=== PATIENT | male | born 1960 | race Caucasian/White ===

== ENCOUNTER 2017-03-01 05:41 | Day surgery (SDC) | payer OTHER ==
[2017-03-01] MEDS ORDERED: LR 1,000 ML IV ONE (06:28)
[2017-03-01] MEDS ORDERED: ceFAZolin 2 GM/DEXTROSE 100 ML IV ONE (07:00)
[2017-03-01] MEDS ORDERED: THROMBIN (BOVINE) 5,000 UNIT VIAL TP ONE (07:00)
[2017-03-01] MEDS ORDERED: CHLORHEXIDINE GLUC HIBICLENS 118 ML BTL TP ONE (07:00)
[2017-03-01] MEDS ORDERED: BACITRACIN 50,000 UNITS/10 ML SYR IRR ONE (07:01)
[2017-03-01] MEDS ORDERED: BUPIVACAINE/EPI 0.25% 30 ML SDV ONE (07:01)
[2017-03-01] MEDS ORDERED: MIDAZOLAM 2 MG/2 ML VIAL ONE (07:11)
[2017-03-01] MEDS ORDERED: fentaNYL 100 MCG/2 ML INJ ONE ×2 (07:20→10:41)
[2017-03-01] MEDS ORDERED: PROPOFOL/EMULSION 500 MG/50 ML BOTTLE IV ONE ×2 (07:21→08:42)
[2017-03-01] MEDS ORDERED: REMIFENTANIL HCL 1 MG VIAL ONE ×2 (07:21→08:41)
[2017-03-01] MEDS ORDERED: PROPOFOL 200 MG/20 ML VIAL ONE (07:21)
[2017-03-01] MEDS ORDERED: ONDANSETRON 4 MG/2 ML VIAL ONE (07:22)
[2017-03-01] MEDS ORDERED: ROCURONIUM 50 MG/5 ML VIAL ONE (07:23)
[2017-03-01] MEDS ORDERED: DEXAMETHASONE 4 MG/ML VIAL ONE ×3 (07:23→07:50)
[2017-03-01] MEDS ORDERED: LIDOCAINE 2% 5 ML SDV ONE (07:23)
[2017-03-01] MEDS ORDERED: BUPIVACAINE 0.5% 30 ML SDV ONE (07:49)
[2017-03-01] MEDS ORDERED: epHEDrine SULFATE 10 MG/ML SYR ONE ×2 (08:06→08:55)
[2017-03-01] MEDS ORDERED: fentaNYL 250 MCG/5 ML INJ ONE (09:40)
[2017-03-01] MEDS ORDERED: LABETALOL HCL 50 MG/10 ML SYR ONE (10:07)
--- NOTE | 2017-03-01 11:04 | GOP ---
[f rep st] OPERATIVE REPORT DATE OF OPERATION: 03/01/2017 SURGEON: Jose R Tony MD [facility]PASS OPERATOR: Kvng Wakefield PA-C. PREOPERATIVE DIAGNOSIS: Cervical spondylosis with cervicalgia and left cervical radiculopathy. POSTOPERATIVE DIAGNOSIS: Cervical spondylosis with cervicalgia and left cervical radiculopathy. PROCEDURE PERFORMED: Anterior cervical diskectomy and fusion with a plate at C5-6, and placement of biomechanical graft at C5-6 with the same incision bone graft harvest ([id number], [id number], [id number], [id number], [id number]). FINDINGS: ESTIMATED BLOOD LOSS: 25 cc. INDICATIONS: The patient is a 56-year-old with terrible pain radiating down the left arm. Unrespon sive to conservative measures and his MRI demonstrated spondylosis C5-6. There were minimal changes at C6-7 and even C7-T1, and I suggested a single-level fusion at C5-6. We discussed disc arthropla sty and a posterior foraminotomy. He did have a degree of posterior ligamentous hypertrophy at C5-6 but I thought an ACDF would give him the best relief. The risk of pseudoarthrosis, adjacent segmen t disease, esophageal injury, carotid injury, recurrent laryngeal nerve injury, hoarseness, dysphagi a was discussed. He accepted these risks. He wanted to proceed. DESCRIPTION OF PROCEDURE: The patient was taken to the operating room, placed in supine position. General anesthesia was begun. A midline shoulder roll was placed. His head was carefully positione d on the operating room table. Arms tucked at the sides. His neck was sterilely prepped and draped in usual fashion. We made a right-sided transverse incision above the C5-6 space in the inferior n wendy fold. The subcutaneous tissue was dissected using Bovie cautery through platysma. We used a co mbination of blunt and sharp dissection medial to the sternocleidomastoid and lateral to the strap m uscles, down to the prevertebral space. The esophagus was swept medially, the carotid sheath swept laterally. We dissected the longus colli muscles off the spine at C5-6, and placed distraction pins at C5-6, shot a localizing x-ray, and under the microscope we removed the C5-6 disc. We drilled th e ventral osteophytes and harvested these for autologous grafting purposes. We completely removed t he disk and the cartilaginous endplates. We then drilled and harvested subchondral bone for autolog ous grafting purposes, opened the posterior longitudinal ligament and decompressed the thecal sac an d the neural foramina bilaterally. A nice decompression was obtained. The left was more stenotic t miller the right with a small acute soft disk fragment on the left as well that was not seen on the rig ht. There was bilateral uncinate process hypertrophy. We chose a 7 mm anatomic PTC cage, fashioned it to fit in the space and impacted it with autologously harvested bone dust and inserted at C5-6. We then took a 21 mm plate and placed a single screw at 5, a single screw at 6 and then shot an x-r ay confirming the position of the hardware. We placed 2 more screws, locked them according to [place]. We used bipolar cautery, achieved meticulous hemostasis. Irrigated with antibiotic saline solution and placed the dysphagia protocol study drug into the prevertebral space. We then closed the platysma with interrupted Vicry l sutures. A running PDS was placed in the skin itself. The patient was reversed from anesthesia, extubated, and transferred to recovery in stable condition. There were no complications. COMPLICATIONS: None. INSTRUMENTATION USED: [employer] 21 mm ZEVO plate with a 7 mm anatomic PTC cage. /[id number]/MODL
[2017-03-01] MEDS ORDERED: ENALAPRILAT DIHYDRATE 1.25 MG/ML VIAL ONE (11:08)
[2017-03-01] MEDS ORDERED: DIAZEPAM 10 MG/2 ML SYR ONE (11:08)
[2017-03-01] MEDS ORDERED: ENALAPRILAT DIHYDRATE 1.25 MG/ML VIAL IVP ONE (11:15)
[2017-03-01] MEDS ORDERED: DIAZEPAM 10 MG/2 ML SYR IVP ONE ×2 (11:15→11:45)
[2017-03-01] MEDS ORDERED: ENALAPRILAT DIHYDRATE 1.25 MG/ML VIAL IV ONE (11:45)
== END 2017-03-01 14:00 | disposition home health service (06) ==
LOC: FSGY 05:41
PROVIDERS: ATTEND Neurological Surgery
PROC: 00NW0ZZ Release Cervical Spinal Cord, Open Approach (ICD-10-PCS; principal; 2017-03-01 07:30)
PROC: 0RG10A0 Fusion of Cervical Vertebral Joint with Interbody Fusion Device, Anterior Approach, Anterior Column, Open Approach (ICD-10-PCS; principal; 2017-03-01 07:30)
DX: M48.02 Spinal stenosis, cervical region (principal); M47.22 Other spondylosis with radiculopathy, cervical region; E66.9 Obesity, unspecified; E78.5 Hyperlipidemia, unspecified
CPT/HCPCS: C1713; J0690; J1100; J2250; J2405; J2704; J3010